=== PATIENT | female | born 2000 | race Caucasian/White ===

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

== ENCOUNTER → 2020-09-19 13:35 | Outpatient (CLI) | payer OTHER, SELFPAY ==
[2019-12-26 09:01] VITALS: BMI 23.8
== END ==
PROVIDERS: PCP Internal Medicine; Referring Provider Internal Medicine; Visit Provider Internal Medicine
DX: R00.2 Palpitations (principal)
CPT/HCPCS: 93225; 93226

== ENCOUNTER 2020-12-28 11:30 | Outpatient (RCR) | payer OTHER, SELFPAY ==
[2019-12-26 09:01] VITALS: BMI 23.8
--- NOTE | 2020-11-27 12:38 | HP.PTEVAL_ITS ---
Patient's Visit Information PHILIP SOUSA is a 20 year old F referred to Physical Therapy by Dr. Ronna Turcios MD with a diagnosis of LOW BACK PAIN. Date of Evaluation: 11/27/20 Physical Therapist: Nini Camacho PT, Cert MDT - Visit Plan Frequency: 2-3x /Week Duration: 4-6 Weeks Plan: POSTURE CORRECTION/STRENGTHENING, INSTRUCTION IN APPROPRIATE BODY MECHANICS AND ACTIVITY MODIFICATIONS. DLS STARTING WITH A NEUTRAL SPINE PROGRESSING ROM TOLERATED. ODESSA LE ROM, STRETCHING AND STRENGTHENING. HEP INSTRUCTION. 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 A LOT OF BENDING BUT NOT A LOT OF HEAVY LIFTING. Disability: NO. Present symptoms: LBP R>L. TINGLING IN FEET A FEW TIMES. Present since: ABOUT 6-8 WKS AGO. Pain Scale: WORST 8/10, LEAST 2/10. Currently: 4/10. Commenced as a result of: LIFTING AT THE GYM - DOING DEADLIFTS. NO PAIN DURING BUT IMMEDIATELY AFTER WAS SORE. DID NOT HEAR OR FEEL ANYTHING POP. Symptoms at onset: LOW BACK SORENESS AND SHARP PAIN. Worse: BENDING, SITTING, LIFTING,. Better: Disturbed sleep: YES. Previous history/Previous treatment: ABOUT 12 CHIROPRACTIC VISITS - WORSE WITH TENS. NE FROM ADJUSTMENTS FOR THE MOST PART EXCEPT MAYBE ONCE. US - NE. TOOK MOBIC TWICE - HELPS. IBUPROFEN - HELPS. NOT TAKING MUSCLE RELAXER OR NARCOTIC PRESCRIBED. Coughing/sneezing/straining: POSITIVE. Gait: INCREASED BACK PAIN WITH PROLONGED WALKING. INCREASED PAIN WALKING UP HILLS. Difficulty initiating urinatin: NO. Accidents: NO. Unexplained weight loss: NO. Imaging: LUMBAR X-RAYS - NORMAL PER PATIENT REPORT. PMH: MIGRAINES. - Objective Sitting/Standing Posture: POOR. Lordosis: NORMAL. Lateral shift: NO. Relevant shift: N/A. Active Correction of posture: NE. Other Observations: INDEP GAIT AND TRANSFERS. Motor deficit: ODESSA LE'S 5/5 WITH MMT'ING EXCEPT R HIP 4-/5, L 4/5. Sensory deficit: ODESSA LE LIGHT TOUCH SENSATION INTACT AND SYMMETRICAL. ROM deficit: ODESSA LE'S WFL. Reflexes: UNABLE TO ELICIT ODESSA LE DTR'S. Dural Signs: POSITIVE R LE. Lumbar mvmt loss: flex - MOD. ext - MOD. R SG - MOD. L SG - MIN. PATIENT C/O INCREASED LBP WITH LUMBAR ROM TESTING ALL PLANES EXCEPT L SG TESTING. Core strength: POOR. Palpation: NO ACUTE LUMBOSACRAL TENDERNESS. TREATMENT: NEUROMUSCULAR REEDUCATION - RETRAINING OF MVMT AND POSTURE FOR SITTING, LYING AND STANDING ACTIVITIES. - Goals Goal 1:: DECREASE C/O LBP Goal Time Frame: 4-6 Weeks Goal 2:: IMPROVE PERSONAL CARE, LIFTING, SITTING, SOCIAL LIFE, TRAVEL, HOMEMAKING AND WORK FUNCTION. Goal Time Frame: 4-6 Weeks Goal 3:: INSTRUCT IN PROPYLAXIS Goal Time Frame: 4-6 Weeks - Anticipated Interventions Patient/Client Instruction: Educate patient on: Condition, Plan of Care, Risk Factors, Benefits of Fitness Program For the Purpose of:: To improve self management Therapeutic Exercise to Include: Strength training, Body mechanics, Postural training, Neuromotor development, In an aquatic setting, Dynamic Lumbar Stabilization For the Purpose of:: To decrease pain, To increase ROM, To improve muscle performance and motor function, To increase tolerance to activity/condition/position, To improve ability of physical actions for home/community/work/leisure, To improve gait and locomotor functions IF ES: Yes Cryotherapy (ice pack, ice massage): Yes Thermo therapy (hot pack): Yes Ultrasound (thermal/non thermal): Yes For the Purpose of:: To decrease pain, To improve nutrient delivery to tissue Thank you for the opportunity to evaluate your patient. For Medicare and Medicare HMO plans, please review the plan of care and approve it. It will need to be FAXED BACK to us at [phone] for Medicare purposes. For Medicare only, by signing this I certify the plan of care. Please let me know if there are questions or concerns regarding this plan of care. Physician Signature: Date:
--- NOTE | 2020-12-28 11:58 | HP.PTREVAL ---
Dr. Ronna Turcios MD, It has been my pleasure to treat PHILIP SOUSA over the last 9 visits for LOW BACK PAIN. Please see the progress note below for an update on the physical therapy plan of care! Subjective: PATIENT REPORTS SHE IS ABOUT THE SAME OVER-ALL. SHE REPORTS SHE IS STILL HAVING R LOW BACK PAIN. PATIENT REPORTS NEW ONSET R LE SX'S X ABOUT 3 DAYS FOR NO APPARENT REASON. REPORTS INTERMITTENT RIGHT LE PAIN, NUMBESS AND TINGLING ALL THE WAY DOWN HER LEG TO HER TOES X 3 DAYS. IT IS NOT THERE NOW. PATIENT REPORTS THERAPY DEFINATELY HELPED STRETCH HER MUSCLES BUT THEY JUST TIGHTENED RIGHT BACK UP AGAIN. REPORTS INCREASED PAIN AFTER PT SESSIONS BUT NOT WORSE OVER-ALL UNTIL ABOUT 3 DAYS AGO. Objective/Function: PATIENT WAS SEEN TODAY FOR RE-ASSESSMENT OF PROGRESS TOWARD THE SET PT GOALS AND THE NEED FOR FURTHER PHYSICAL THERAPY VS READINESS FOR DISCHARGE. PATIENT IS WORSENING. ONSET OF NEW RIGHT LE SX'S ABOUT 3 DAYS AGO PER PATIENT REPORT FOR NO APPARENT REASON. PHYSICIAN RE-CHECK RECOMMENDED AND PATIENT AGREEABLE. UPON EXAM TODAY: Motor deficit: ODESSA LE'S 5/5 WITH MMT'ING EXCEPT R HIP 3+/5, L 4/5. Sensory deficit: DECREASED LIGHT TOUCH SENSATION OF R LE COMPARED TO LEFT. ROM deficit: ODESSA LE'S WFL. Reflexes: UNABLE TO ELICIT ODESSA LE DTR'S. Dural Signs: POSITIVE ODESSA LE'S R > L. Lumbar mvmt loss: flex - MOD TO JOHN. ext - MOD TO JOHN. R SG - MOD. L SG - MIN. PATIENT C/O INCREASED LBP WITH LUMBAR ROM TESTING ALL PLANES EXCEPT L SG TESTING. Core strength: POOR. Palpation: NO ACUTE LUMBOSACRAL TENDERNESS. Plan Plan: HOLD CHART PENDING PHYSICIAN RE-ASSESSMENT. Goals Goal 1:: DECREASE C/O LBP Goal Time Frame: 4-6 Weeks Goal 2:: IMPROVE PERSONAL CARE, LIFTING, SITTING, SOCIAL LIFE, TRAVEL, HOMEMAKING AND WORK FUNCTION. Goal Time Frame: 4-6 Weeks Goal 3:: INSTRUCT IN PROPYLAXIS Goal Time Frame: 4-6 Weeks Anticipated Interventions Patient/Client Instruction: Educate patient on: Condition, Plan of Care, Risk Factors, Benefits of Fitness Program For the Purpose of:: To improve self management Therapeutic Exercise to Include: Strength training, Body mechanics, Postural training, Neuromotor development, In an aquatic setting, Dynamic Lumbar Stabilization For the Purpose of:: To decrease pain, To increase ROM, To improve muscle performance and motor function, To increase tolerance to activity/condition/position, To improve ability of physical actions for home/community/work/leisure, To improve gait and locomotor functions IF ES: Yes Cryotherapy (ice pack, ice massage): Yes Thermo therapy (hot pack): Yes Ultrasound (thermal/non thermal): Yes For the Purpose of:: To decrease pain, To improve nutrient delivery to tissue Please do not hesitate to contact me at [phone] by phone or if you have questions or concerns regarding this new plan of care! Sincerely, Nini Camacho, PT, Cert MDT
--- NOTE | 2021-05-19 17:08 | HP.PT.NRP ---
PHILIP SOUSA was seen in my office for initial evaluation on 11/27/20. The following Plan of Care was established for this patient: Initial Frequency: 2-3x /Week Initial Duration: 4-6 Weeks Patient/Client Instruction: Educate patient on: Condition, Plan of Care, Risk Factors, Benefits of Fitness Program For the Purpose of:: To improve self management Therapeutic Exercise to Include: Strength training, Body mechanics, Postural training, Neuromotor development, In an aquatic setting, Dynamic Lumbar Stabilization For the Purpose of:: To decrease pain, To increase ROM, To improve muscle performance and motor function, To increase tolerance to activity/condition/position, To improve ability of physical actions for home/community/work/leisure, To improve gait and locomotor functions IF ES: Yes Cryotherapy (ice pack, ice massage): Yes Thermo therapy (hot pack): Yes Ultrasound (thermal/non thermal): Yes For the Purpose of:: To decrease pain, To improve nutrient delivery to tissue This patient was last seen in our office 12/28/20. Pertinent comments regarding their Physical therapy will appear below: This patient has not returned to Physical Therapy and is appropriate to return to MD for further follow-up as needed. At this point I will be discontinuing this patient from physical therapy. I would be happy to see this patient again in the future if found appropriate by the physician. Thank you! Nini Camacho, PT, Cert MDT Balance/Gait/Functional tests - Balance/Special Test Scores Oswestry Low Back Score: 17
== END 2020-12-28 19:00 | disposition home or self-care (01) ==
LOC: PT 11:30
PROVIDERS: PCP Internal Medicine; Referring Provider Internal Medicine; Visit Provider Internal Medicine
DX: M54.5 Low back pain (principal)
CPT/HCPCS: 97112; 97113; 97162; 97164; 97530

== ENCOUNTER → 2021-01-01 07:59 | Outpatient (CLI) | payer OTHER, SELFPAY ==
[2019-12-26 09:01] VITALS: BMI 23.8
--- NOTE | 2021-01-01 08:03 | MRI_ITS ---
STUDY: MRI LUMBAR SPINE WITHOUT CONTRAST REASON FOR EXAM: Female, 20 years old. LUMBAR RADICULOPATHY TECHNIQUE: Standardized fat and water weighted pulse sequences were obtained in the sagittal and axial planes. COMPARISON: None FINDINGS: Normal lumbar lordosis. There is no substantial scoliosis. L1-2: Normal endplates. Normal disc height, hydration and morphology. Normal bilateral facet joints. Normal central canal and bilateral lateral recesses. Normal bilateral intervertebral neural foramina. L2-3: Normal endplates. Normal disc height, hydration and morphology. Normal bilateral facet joints. Normal central canal and bilateral lateral recesses. Normal bilateral intervertebral neural foramina. L3-4: Normal endplates. Normal disc height, hydration and morphology. Normal bilateral facet joints. Normal central canal and bilateral lateral recesses. Normal bilateral intervertebral neural foramina. L4-5: There is mild disc space narrowing and endplates spondylosis. Mild disc bulge with central protrusion with mild central canal stenosis. Mild right lateral narrowing. No significant foraminal stenosis. L5-S1: Normal endplates. Normal disc height, hydration and morphology. Normal bilateral facet joints. Normal central canal and bilateral lateral recesses. Normal bilateral intervertebral neural foramina. Normal visualized sacral ala. MRI/Spine Lumbar (Routine) IMPRESSION: L4/L5: Small disc protrusion with mild right lateral recess and central canal stenosis. Electronically Signed: Jose David Paz MD at 15:55 EDT Tel , Service support ,
== END ==
PROVIDERS: PCP Internal Medicine; Referring Provider Internal Medicine; Visit Provider Internal Medicine
DX: M54.5 Low back pain (principal)
CPT/HCPCS: 72148

== ENCOUNTER 2021-02-24 22:47 | Emergency (ER) | payer OTHER, SELFPAY ==
[2019-12-26 09:01] VITALS: BMI 23.8
[2021-02-24 22:47] VITALS: BP 165/92; PULSE 131; RESP 18; TEMP 36.6; O2SAT 98; BMI 38.9
--- NOTE | 2021-02-25 01:03 | EDS_ITS ---
HPI HPI - GI History of Present Illness Chief Complaint: Abd Pain Informant: patient Abdominal Pain/Flank Pain Onset: Weeks Context: Gradual Onset Timing: Continuous Quality: Aching and Cramping Current Severity: Mild Maximum Severity: Mild Nausea/Vomiting/Emesis GI Symptom: Positive for Nausea and Vomiting Onset: Days Severity: Mild Diarrhea/Melena/Hematochezia GI Symptom: Positive for Diarrhea; Negative for Melena Associated Symptoms Associated Symptoms: Positive for Dysuria and Frequency Narrative Narrative: 20-year-old female no significant past medical history currently being treated for weight loss with medications. States last Thursday started having nausea vomiting crampy abdominal pain and diarrhea.. Said initially the nausea vomiting improved midweek she was seen in urgent care yesterday diagnosed with a UTI and started on Bactrim. States that she is taken 2 doses of Bactrim. Tonight had more nausea and vomiting. Denies fever or chills. No history of kidney stones. No prior surgeries. Prior similar symptoms: No Recent Illness/Hospitalization: No PFSH PFSH Medical History (Updated 02/25/21 @ 03:[address] Maciej Alfredo MD) Abnormal weight gain Deep dyspareunia Dermatographic urticaria Migraine with aura Superficial (introital) dyspareunia Home Medications escitalopram oxalate 7.5 mg PO DAILY 02/25/21 [History Last Taken Unknown] Allergy/AdvReac Type Severity Reaction Status Date / Time corn Allergy Unknown Unknown Verified 02/24/21 22:50 gluten Allergy Unknown Unknown Verified 02/24/21 22:50 shrimp Allergy Unknown Unknown Verified 02/24/21 22:50 wheat Allergy Unknown Unknown Verified 02/24/21 22:50 Family History Grandmother Heart disease Diabetes Autoimmune disease Hypertension Hormone disorder Father Asthma Mother Bleeding disorder Grandfather Skin cancer Social History Smoking Status: Never smoker alcohol intake: never substance use type: does not use what type of physical activity do you participate in: none ROS ROS ED ROS Narrative Abdominal pain with nausea and vomiting and dysuria. No fever or chills. Review of Systems ROS Unobtainable: Denies due to encephalopathy Constitutional Constitutional ED: Denies chills or fever(s) ENT ENT ED: Denies ear pain or sore throat Cardiovascular Cardiovascular: Denies chest pain Respiratory/Chest Respiratory/Chest: Denies cough or dyspnea Gastrointestinal Gastrointestinal: Reports abdominal pain, nausea and vomiting; Denies constipation, diarrhea or melena Genitourinary Genitourinary ED: Reports dysuria Musculoskeletal Musculoskeletal: Denies arthralgias or myalgias Integumentary Denies abscess or rash Neurologic Neurologic: Denies headache(s) Psychiatric Psychiatric: Denies depression Endocrine Endocrinology: Denies polyuria Hematologic/Lymphatic Hematologic/Lymphatic: Denies easy bruising Allergic/Immunologic Allergic/Immunologic ED: Denies urticaria EXAM Physical Exam Narrative Exam Narrative: Well-appearing 20-year-old female. Vital signs stable she is tachycardic. Initial blood pressure 165/92. She is afebrile. She does not look septic or toxic. Clinically does not look dehydrated. HEENT exam unremarkable. Neck nontender no lymphadenopathy. Lungs clear to auscultation bilaterally. Heart tachycardic no murmur rate about 115. Abdomen soft nondistended normal bowel sounds no peritoneal signs. No right upper or right lower quadrant tenderness. Extremities moves all 4. Skin no rashes. No edema. Back mild left CVA tenderness. Extremities moves all 4. Neurologically awake alert. Const Vital Signs: 02/24/21 22:47 Temperature 97.9 F Temperature Source Temporal Pulse Rate 131 H Respiratory Rate 18 Blood Pressure 165/92 H Blood Pressure Mean 116 Pulse Ox 98 Oxygen Delivery Method Room Air Positive well nourished and well developed General Appearance ED: well developed and NAD HEENT Reports moist mucous membranes normocephalic and atraumatic; Negative for trauma or tenderness Eyes PERRL and EOMs intact bilaterally Neck no lymphadenopathy, supple and no JVD General: Negative for tenderness Resp normal respiratory effort and clear to auscultation bilaterally Auscultation: Negative for rales, rhonchi or wheezes Cardio regular rhythm, S1 normal heart sound, S2 normal heart sound and no murmurs Rate: tachycardic GI non-tender, non-distended and no masses Auscultation: normoactive bowel sounds Palpation: soft; Negative for tender, guarding, rigid or rebound tenderness present Back/Spine no CVA tenderness Extremity full ROM General Extremety ED: Negative for edema or tenderness General Extremity: Negative for edema Neuro CN's II-XII intact bilaterally and moves all extremities Sensorium / Orientation: alert, oriented to person, oriented to place, oriented to time and orientation impaired Psych mental status grossly normal and thought process normal Skin Lesions: no lesions Rashes: no rashes MDM MDM MDM Narrative Medical decision making narrative: Patient with nausea and vomiting recently diagnosed with UTI. TMs benign. Switch with IV fluids. She did not waiting for pain or nausea and labs and UA are pending. She does not need imaging at this time. Repeat exam she is doing well at 3:20 AM. Abdomen is completely benign. I think this is more of a gastroenteritis and a UTI. She will continue her Zofran. Fluids and follow-up with her primary care physician Dr. Ronna Turcios if not improving. Lab Data Attestation: I reviewed the patient's lab results. Lab results narrative: White count 12. Hemoglobin 12. Electrolytes unremarkable gap of 5. Normal creatinine. Normal liver enzymes. Urinalysis shows no signs of infection. test negative. Patient portable urinalysis from her urgent care visit it was questionable for UTI there is a few white cells but there is also squamous cells this is probably contaminated there were no nitrates or bacteria. I discussed that with her. Labs: Laboratory Results - last 24 hr 02/24/21 02/24/21 02/25/21 23:54 23:54 01:11 WBC 12.1 H RBC 4.56 Hgb 12.4 Hct 40.8 MCV 89.5 MCH 27.2 MCHC 30.4 L RDW Std Deviation 46.9 H RDW Coeff of Ananda 14.4 Plt Count 65 L MPV 12.0 Immature Gran % (Auto) 0.400 Neut % (Auto) 62.7 Lymph % (Auto) 28.3 Charlton % (Auto) 6.5 Eos % (Auto) 1.6 Baso % (Auto) 0.5 Absolute Neuts (auto) 7.6 Absolute Lymphs (auto) 3.44 Nucleated RBC % 0 Sodium 136 Potassium 5.1 Chloride 106 Carbon Dioxide 25.0 Anion Gap 5 BUN 6 L Creatinine 0.74 Estim Creat Clear Calc 87.11 Est GFR (MDRD) Af Amer 128 Est GFR (MDRD) Non-Af 106 BUN/Creatinine Ratio 8.1 L Glucose 88 Calcium 9.1 Total Bilirubin 0.40 AST 43 H ALT 19 Alkaline Phosphatase 96 Total Protein 7.9 Albumin 3.5 Globulin 4.4 H Albumin/Globulin Ratio 0.8 L Serum , Qual Urine Color Yellow Urine Clarity Clear Urine pH 8.0 Ur Specific [place] 1.015 Urine Protein Negative Urine Glucose (UA) Normal Urine Ketones Negative Urine Occult Blood 25 H Urine Nitrite Negative Urine Bilirubin Negative Urine Urobilinogen Normal Ur Leukocyte Esterase Negative Urine RBC 0-5 SEEN Urine WBC 0 SEEN Ur Squamous Epith Cells 0 SEEN Urine Bacteria 0 SEEN Urine Mucus 0 SEEN 02/25/21 01:15 WBC RBC Hgb Hct MCV MCH MCHC RDW Std Deviation RDW Coeff of Ananda Plt Count MPV Immature Gran % (Auto) Neut % (Auto) Lymph % (Auto) [place] % (Auto) Eos % (Auto) Baso % (Auto) Absolute Neuts (auto) Absolute Lymphs (auto) Nucleated RBC % Sodium Potassium Chloride Carbon Dioxide Anion Gap BUN Creatinine Estim Creat Clear Calc Est GFR (MDRD) Af Amer Est GFR (MDRD) Non-Af BUN/Creatinine Ratio Glucose Calcium Total Bilirubin AST ALT Alkaline Phosphatase Total Protein Albumin Globulin Albumin/Globulin Ratio Serum , Qual NEGATIVE Urine Color Urine Clarity Urine pH Ur Specific [place] Urine Protein Urine Glucose (UA) Urine Ketones Urine Occult Blood Urine Nitrite Urine Bilirubin Urine Urobilinogen Ur Leukocyte Esterase Urine RBC Urine WBC Ur Squamous Epith Cells Urine Bacteria Urine Mucus Discharge Plan Triage Chief Complaint: Abd Pain ED Provider: Maciej Alfredo Dx/Rx/DC Orders Clinical Impression: Gastroenteritis Instructions: ED Gastroenteritis, Viral (Adult) Prescriptions: No Action escitalopram oxalate 5 mg tablet 7.5 mg PO DAILY RF: 0 Primary Care Provider: Ronna Turcios Referrals: Ronna Turcios MD [Primary Care Provider] - 3-5 Days if not improving Activity Restrictions/Additional Instructions: I think this is more of a viral gastroenteritis than a UTI. Urine is not infected tonight I think that urgent care urine may have been contaminated. Plenty of fluids and rest. Increase diet slowly as tolerated. Zofran as needed for nausea. I think you can stop. Antibiotic. Follow-up your primary care physician if not improving or return to the emergency department if feeling worse. Disposition Disposition: Home, Self Care
[2021-02-25 01:14] LABS: Absolute Lymphocyte Count 3.44 X10^3/uL (0.83-4.51); Absolute Neutrophil Count 7.6 X10^3/uL (2.0-7.7); Basophil# 0.06 X10^3/uL; Basophil% 0.5 % (0-1); Eosinophils% 1.6 % (0-5); Hematocrit 40.8 % (37-47); Hemoglobin 12.4 g/dL (12.0-15.0); Lymphocyte # 3.44 X10^3/ul (0.83-4.51); Lymphocyte % 28.3 % (19-41); Mean Corp Hgb Conc 30.4 g/dL (32-36); Mean Corpuscular Hgb 27.2 pg (27.0-32.0); Mean Corpuscular Volume 89.5 fL (81-99); Monocyte# 0.79 X10^3/uL; Monocyte% 6.5 % (0-10); NRBC Flagged by Analyzer 0 % (0-5); Neutrophil % 62.7 % (47-70); POSITIVE COUNT YES; Platelet Count 65 K/mm3 (150-450); RBC Distribution Width CV 14.4 % (11.6-14.6); RBC Distribution Width SD 46.9 fl (35.1-43.9); Red Blood Count 4.56 M/mm3 (4.2-5.4); White Blood Count 12.1 K/mm3 (4.4-11.0)
[2021-02-25 01:16] LABS: Differential Indicated SCAN CRITERIA MET
[2021-02-25] MEDS: 0.9% Normal Saline 1,000 ML 1000 ML IV (01:20)
[2021-02-25 01:22] LABS: Bacteria 0 SEEN /hpf (None Seen); Mucous, Urine 0 SEEN /hpf (<or=2+); Squamous Epithelial Cells - UA 0 SEEN /hpf (5-10); White Blood Cells 0 SEEN /hpf (0-5)
[2021-02-25 01:25] LABS: Color, Urine Yellow (Yellow); Glucose, Dipstick Normal (Normal); Ketone-Dipstick Negative (Negative); Leukocyte Esterase-Dipstick Negative /ul (Negative); Nitrite-Dipstick Negative (Negative); Occult Blood-Urine 25 /ul (Negative); Protein-Dipstick Negative (Negative); Specific Gravity, Urine 1.015 (1.002-1.030); Urine Bilirubin Dipstick Negative (Negative); Urine Clarity Clear (Clear); Urine Urobilinogen Normal (Normal)
[2021-02-25 01:30] LABS: Red Blood Cells-Urine 0-5 SEEN /hpf (0-5)
[2021-02-25 01:30] LABS: Internal QC Validated? YES +Cl - CLEAR BKGD; Pregnancy, Serum, hCG Quali. NEGATIVE Negative
[2021-02-25 01:31] LABS: ALB/GLOB Ratio 0.8 RATIO (0.9-2.4); AST(SGOT) 43 U/L (15-37); Alanine Aminotransfer ALT/SGPT 19 U/L (13-56); Albumin, Serum 3.5 g/dL (3.2-5.0); Alkaline Phosphatase 96 U/L (45-117); Anion Gap 5 (5-15); BUN 6 mg/dL (7-18); BUN/Creat Ratio 8.1 RATIO (10-20); Calcium,Total 9.1 mg/dL (8.5-10.1); Chloride 106 mmol/L (98-107); Creatinine, Serum 0.74 mg/dL (0.55-1.02); EST Glomerular Filtration Rate 106 mL/min (>60); Est Glom Filt Rate - Afr Amer 128 mL/min (>60); Estimated Creatinine Clearance 87.11 ml/min; Globulin 4.4 g/dL (2.2-4.2); Glucose 88 mg/dL (74-106); Potassium 5.1 mmol/L (3.5-5.1); Protein, Total 7.9 g/dL (6.4-8.2); Sodium Level 136 mmol/L (136-145)
== END 2021-02-25 03:35 | disposition home or self-care (01) ==
PROVIDERS: Emergency Provider Emergency Medicine; PCP Internal Medicine
DX: K52.9 Noninfective gastroenteritis and colitis, unspecified (principal); R63.4 Abnormal weight loss; Z79.899 Other long term (current) drug therapy
CPT/HCPCS: 80053; 81001; 84703; 85025; 96360; 96361; 99284; J7030; A4216

== ENCOUNTER → 2022-03-08 | Outpatient (CLI) | payer OTHER, SELFPAY ==
[2022-03-08 15:38] LABS: Color, Urine Yellow (Yellow); Glucose, Dipstick Normal (Normal); Ketone-Dipstick Negative (Negative); Leukocyte Esterase-Dipstick Negative /ul (Negative); Nitrite-Dipstick Negative (Negative); Occult Blood-Urine 50 /ul (Negative); Protein-Dipstick Negative (Negative); Urine Bilirubin Dipstick Negative (Negative); Urine Clarity Clear (Clear); Urine Urobilinogen Normal (Normal)
[2022-03-08 16:56] LABS: White Blood Cells 5-10 SEEN /hpf (0-5)
[2022-03-08 16:57] LABS: Red Blood Cells-Urine 0-5 SEEN /hpf (0-5)
[2022-03-08 16:58] LABS: Bacteria 4+ /hpf (None Seen); Mucous, Urine 4+ /hpf (<or=2+); Squamous Epithelial Cells - UA 5-10 SEEN /hpf (5-10)
== END | disposition home or self-care (01) ==
PROVIDERS: PCP Internal Medicine; Visit Provider Nurse Practitioner Family
DX: N39.0 Urinary tract infection, site not specified (principal)
CPT/HCPCS: 81001; 87086; 87088

== ENCOUNTER → 2022-05-16 | Outpatient (CLI) | payer OTHER, SELFPAY ==
[2022-05-24 14:36] LABS: HPV APTIMA, High Risk Negative (Negative)
[2022-05-24 14:37] LABS: HPV Reflexed? YES, CHARGE PATIENT
== END | disposition home or self-care (01) ==
LOC: LABSPEC 10:01
PROVIDERS: PCP Internal Medicine; Referring Provider Internal Medicine; Visit Provider Internal Medicine
DX: Z01.419 Encounter for gynecological examination (general) (routine) without abnormal findings (principal)
CPT/HCPCS: 87624; 88175; G0145